=== PATIENT | male | born 1980 | race Caucasian/White ===

== ENCOUNTER → 2024-06-06 15:29 | Outpatient (REF) | payer OTHER, SELFPAY | LOC: HWRCS 15:29 | PROVIDERS: ATTENDING PHYSICIAN Internal Medicine Cardiovascular Disease; FAMILY PHYSICIAN Nurse Practitioner Family | DX: Z79.01 Long term (current) use of anticoagulants (principal); Z95.2 Presence of prosthetic heart valve | CPT/HCPCS: 93306 ==